=== PATIENT | female | born 1970 | race Caucasian/White ===

== ENCOUNTER 2016-04-25 19:34 | Emergency (ER) | payer MEDICAID ==
[2016-04-25 20:59] LABS: BASOPHILS 0.3 % (0.0-2.0); EOSINOPHILS 2.2 % (0-7); HEMATOCRIT 41.4 % (36.0-48.0); HEMOGLOBIN 13.8 g/dL (12-16); IMMATURE GRANULOCYTES 0.3 % (0-5); LYMPHOCYTES 21.7 % (15-50); MCH 30.5 pg (26.0-34.0); MCHC 33.3 g/dL (31.0-37.0); MCV 91.6 fL (80.0-100.0); MEAN PLATELET VOLUME 10.6 fL (7.4-10.4); MONOCYTES 7.3 % (2-11); NEUTROPHILS 68.2 % (40-80); PLATELET COUNT 308 10x3/uL (130-400); RBC 4.52 10x6/uL (4.00-5.40); RDW 13.4 % (11.5-14.5); WBC 12.9 10x3/uL (4.8-10.8)
[2016-04-25 21:14] LABS: HCG SERUM NEGATIVE (NEGATIVE)
[2016-04-25 21:18] LABS: ALBUMIN 3.6 g/dL (3.4-5.0); ALKALINE PHOSPHATASE 95 U/L (46-116); ALT (SGPT) 34 U/L (10-68); CALC OSMOLALITY 273 mosm/kg (275-300); CARBON DIOXIDE 20.2 mmol/L (21.0-32.0); CHLORIDE - SERUM 104 mmol/L (98-107); CREATININE - SERUM 0.8 mg/dL (0.6-1.3); GLUCOSE 89 mg/dL (74-106); POTASSIUM - SERUM 3.6 mmol/L (3.5-5.1); PROTEIN - SERUM 7.9 g/dL (6.4-8.2); SODIUM 138 mmol/L (136-145); UREA NITROGEN 9 mg/dL (7-18); eGFR NON AFRICAN AMERICAN 82 mL/min (90-120)
[2016-04-25 21:29] LABS: CKMB 3.3 U/L (0.0-3.6); CREATINE KINASE 234 UL (21-215); TROPONIN-I < 0.017 ng/mL (0.000-0.060)
== END 2016-04-25 22:35 | disposition home or self-care (01) ==
LOC: D.ER 19:34
PROVIDERS: Emergency Medicine Emergency Medical Services
DX: I10 Essential (primary) hypertension (principal); E11.9 Type 2 diabetes mellitus without complications

== ENCOUNTER 2016-05-30 17:48 | Emergency (ER) | payer MEDICAID | END 2016-05-30 19:10 | disposition left against medical advice (07) | LOC: D.ER 17:48 | DX: R51 Headache (principal) ==

== ENCOUNTER 2016-07-05 14:30 | Emergency (ER) | payer MEDICAID ==
[2016-07-05 15:03] LABS: APPEARANCE CLEAR (CLEAR); COLOR YELLOW (YELLOW)
[2016-07-05 15:04] LABS: BILIRUBIN NEGATIVE (NEGATIVE); GLUCOSE 100 mg/dL (NEGATIVE); KETONE NEGATIVE (NEGATIVE); LEUKOCYTE ESTERASE NEGATIVE (NEGATIVE); NITRITE NEGATIVE (NEGATIVE); PROTEIN NEGATIVE (NEGATIVE); SPECIFIC GRAVITY 1.025 (1.005-1.020); UROBILINOGEN NORMAL (NORMAL)
== END 2016-07-05 17:01 | disposition left against medical advice (07) ==
LOC: D.ER 14:30
PROVIDERS: Emergency Medicine
DX: M54.5 Low back pain (principal)

== ENCOUNTER → 2016-08-01 05:29 | Outpatient (CLI) | payer MEDICAID | END | disposition home or self-care (01) | LOC: D.RAD 07-29 13:15 | DX: N20.0 Calculus of kidney (principal) ==

== ENCOUNTER 2016-10-19 16:03 | Emergency (ER) | payer OTHER ==
[2016-10-19 17:25] LABS: BASOPHILS 0.3 % (0-2); EOSINOPHILS 3.1 % (0-7); HEMATOCRIT 38.3 % (36.0-48.0); HEMOGLOBIN 12.6 g/dL (12-16); IMMATURE GRANULOCYTES 0.8 % (0-5); LYMPHOCYTES 33.9 % (15-50); MCH 30.6 pg (26.0-34.0); MCHC 32.9 g/dL (31.0-37.0); MEAN PLATELET VOLUME 11.1 fL (7.4-10.4); MONOCYTES 8.7 % (2-11); NEUTROPHILS 53.2 % (40-80); RBC 4.12 10x6/uL (4.00-5.40); RDW 13.4 % (11.5-14.5); WBC 8.7 10x3/uL (4.8-10.8)
[2016-10-19 17:26] LABS: PLATELET COUNT 95 10x3/uL (130-400)
[2016-10-19 17:53] LABS: PLATELET ESTIMATE DECREASED
[2016-10-19 18:05] LABS: ALBUMIN 3.5 g/dL (3.4-5.0); ALKALINE PHOSPHATASE 110 U/L (46-116); ALT (SGPT) 32 U/L (10-68); BILIRUBIN - TOTAL 0.17 mg/dL (0.2-1.3); CALC OSMOLALITY 285 mosm/kg (275-300); CALCIUM 8.3 mg/dL (8.5-10.1); CARBON DIOXIDE 23.3 mmol/L (21.0-32.0); CHLORIDE - SERUM 108 mmol/L (98-107); CREATININE - SERUM 0.7 mg/dL (0.6-1.3); GLUCOSE 92 mg/dL (74-106); POTASSIUM - SERUM 3.9 mmol/L (3.5-5.1); PROTEIN - SERUM 7.2 g/dL (6.4-8.2); SODIUM 143 mmol/L (136-145); UREA NITROGEN 15 mg/dL (7-18); eGFR NON AFRICAN AMERICAN > 90 mL/min (90-120)
[2016-10-19 18:15] LABS: CKMB 4.3 U/L (0.0-3.6); CREATINE KINASE 305 UL (21-215)
[2016-10-19 18:17] LABS: TROPONIN-I < 0.017 ng/mL (0.000-0.060)
[2016-10-19 20:05] LABS: CREATINE KINASE 303 UL (21-215); TROPONIN-I < 0.017 ng/mL (0.000-0.060)
[2016-10-19 21:21] LABS: CKMB 3.5 U/L (0.0-3.6)
== END 2016-10-19 21:54 | disposition home or self-care (01) ==
LOC: D.ER 16:03
PROVIDERS: Emergency Medicine; Nurse Practitioner Family
DX: R07.89 Other chest pain (principal); E11.9 Type 2 diabetes mellitus without complications; I10 Essential (primary) hypertension; E66.9 Obesity, unspecified

== ENCOUNTER → 2017-02-27 13:49 | Outpatient (CLI) | payer OTHER ==
[~2017-02-27 13:49] MED LIST: COREG12.5 MG PO; GLUCOPHAGE1000 MG PO; NIFEDIPINE ER60 MG PO; TAMIFLU75 MG PO; ZESTRIL40 MG PO
[2017-04-20 11:59] VITALS: BMI 41.6
== END | disposition home or self-care (01) ==
LOC: D.MAMMO 02-17 16:00
DX: Z12.31 Encounter for screening mammogram for malignant neoplasm of breast (principal)

== ENCOUNTER 2017-04-19 14:11 | Observation (INO) | payer OTHER ==
[~2017-04-19] VITALS: Ht 165.1 cm; Wt 113.6 kg
[2017-04-19 15:05] LABS: UDS - AMPHET NEGATIVE QUAL (NEGATIVE); UDS - BARB POSITIVE QUAL (NEGATIVE); UDS - BENZO POSITIVE QUAL (NEGATIVE); UDS - COCAINE NEGATIVE QUAL (NEGATIVE); UDS - OPIATE NEGATIVE QUAL (NEGATIVE); UDS - PCP NEGATIVE QUAL (NEGATIVE); UDS - THC NEGATIVE QUAL (NEGATIVE)
[2017-04-19 15:06] LABS: APPEARANCE CLEAR (CLEAR); COLOR YELLOW (YELLOW)
[2017-04-19 15:07] LABS: BILIRUBIN NEGATIVE (NEGATIVE); GLUCOSE NEGATIVE (NEGATIVE); KETONE NEGATIVE (NEGATIVE); NITRITE NEGATIVE (NEGATIVE); PROTEIN NEGATIVE (NEGATIVE); UROBILINOGEN NORMAL (NORMAL)
[2017-04-19 15:18] LABS: BASOPHILS 0.2 % (0-2); EOSINOPHILS 0.8 % (0-7); HEMATOCRIT 39.3 % (36.0-48.0); HEMOGLOBIN 13.3 g/dL (12-16); IMMATURE GRANULOCYTES 0.4 % (0-5); LYMPHOCYTES 17.2 % (15-50); MCH 31.4 pg (26.0-34.0); MCHC 33.8 g/dL (31.0-37.0); MCV 92.7 fL (80.0-100.0); MEAN PLATELET VOLUME 10.8 fL (7.4-10.4); MONOCYTES 7.1 % (2-11); NEUTROPHILS 74.3 % (40-80); RBC 4.24 10x6/uL (4.00-5.40); RDW 13.7 % (11.5-14.5); WBC 8.3 10x3/uL (4.8-10.8)
[2017-04-19 15:27] LABS: PLATELET COUNT 298 10x3/uL (130-400)
[2017-04-19 15:36] LABS: INR 1.12 (0.85-1.17)
[2017-04-19 15:38] LABS: D-DIMER-QUANTITATIVE 0.43 ug/mLFEU (0.20-0.54)
[2017-04-19 15:50] LABS: ALBUMIN 3.3 g/dL (3.4-5.0); ALKALINE PHOSPHATASE 103 U/L (46-116); ALT (SGPT) 28 U/L (10-68); BILIRUBIN - TOTAL 0.38 mg/dL (0.2-1.3); CALC OSMOLALITY 283 mosm/kg (275-300); CALCIUM 8.5 mg/dL (8.5-10.1); CHLORIDE - SERUM 106 mmol/L (98-107); CREATININE - SERUM 1.5 mg/dL (0.6-1.3); POTASSIUM - SERUM 4.3 mmol/L (3.5-5.1); PROTEIN - SERUM 7.5 g/dL (6.4-8.2); SODIUM 139 mmol/L (136-145); UREA NITROGEN 14 mg/dL (7-18); eGFR NON AFRICAN AMERICAN 40 mL/min (90-120)
[2017-04-19 15:55] LABS: GLUCOSE 196 mg/dL (74-106)
[2017-04-19 16:04] LABS: CKMB 1.4 U/L (0.0-3.6); CREATINE KINASE 236 UL (21-215); MAGNESIUM - SERUM 2.5 mg/dL (1.8-2.4); PHOSPHOROUS 3.9 mg/dL (2.5-4.9)
[2017-04-19 16:05] LABS: TROPONIN-I < 0.017 ng/mL (0.000-0.060)
[2017-04-19 19:45] VITALS: BP 121/82
[2017-04-19 20:00] VITALS: BP 106/55
[2017-04-19 20:11] VITALS: BP 122/81; BMI 41.6
[2017-04-19 21:00] VITALS: BP 121/72
[2017-04-19 22:00] VITALS: BP 136/92
[2017-04-19 23:00] VITALS: BP 149/97
[2017-04-20] VITALS (11 sets, daily range): BP systolic 123–187; BP diastolic 72–119; Ht 165.1 cm; Wt 113.6 kg
[2017-04-20 03:47] LABS: BASOPHILS 0.3 % (0-2); HEMATOCRIT 37.4 % (36.0-48.0); HEMOGLOBIN 12.3 g/dL (12-16); IMMATURE GRANULOCYTES 0.3 % (0-5); LYMPHOCYTES 23.4 % (15-50); MCH 30.8 pg (26.0-34.0); MCHC 32.9 g/dL (31.0-37.0); MCV 93.7 fL (80.0-100.0); MEAN PLATELET VOLUME 10.8 fL (7.4-10.4); MONOCYTES 11.8 % (2-11); NEUTROPHILS 62.2 % (40-80); RBC 3.99 10x6/uL (4.00-5.40); RDW 13.7 % (11.5-14.5); WBC 7.1 10x3/uL (4.8-10.8)
[2017-04-20 03:52] LABS: PLATELET COUNT 233 10x3/uL (130-400)
[2017-04-20 04:16] LABS: ALBUMIN 3.2 g/dL (3.4-5.0); ANION GAP 16.3 mmol/L (8-16); BILIRUBIN - TOTAL 0.4 mg/dL (0.2-1.3); CALCIUM 8.2 mg/dL (8.5-10.1); CARBON DIOXIDE 22.4 mmol/L (21.0-32.0); POTASSIUM - SERUM 3.7 mmol/L (3.5-5.1); PROTEIN - SERUM 7.4 g/dL (6.4-8.2)
[2017-04-20 04:17] LABS: CREATININE - SERUM 1.1 mg/dL (0.6-1.3)
[2017-04-20] MEDS ORDERED: TAMIFLU75 MG PO (11:48)
[2017-04-20] MEDS ORDERED: NIFEDIPINE ER60 MG PO (12:06)
[2017-04-20] MEDS ORDERED: ZESTRIL40 MG PO (12:06)
[2017-04-20] MEDS ORDERED: COREG12.5 MG PO (12:06)
[2017-04-20] MEDS ORDERED: GLUCOPHAGE1000 MG PO (12:06)
== END 2017-04-20 14:52 | disposition home or self-care (01) ==
LOC: D.ER 14:11 → D.ICU 16:54 → OBSVTIME 16:54 → D.ICU 04-20 14:52
PROVIDERS: Family Medicine
DX: T42.6X1A Poisoning by other antiepileptic and sedative-hypnotic drugs, accidental (unintentional), initial encounter (principal); G93.40 Encephalopathy, unspecified; Y92.9 Unspecified place or not applicable; R09.02 Hypoxemia; N17.9 Acute kidney failure, unspecified; I10 Essential (primary) hypertension; J11.1 Influenza due to unidentified influenza virus with other respiratory manifestations; E11.9 Type 2 diabetes mellitus without complications

== ENCOUNTER → 2017-09-14 19:52 | Outpatient (CLI) | payer OTHER ==
[2017-04-20 11:59] VITALS: BMI 41.6
== END | disposition home or self-care (01) ==
LOC: D.MAMMO 15:00
DX: N63.20 Unspecified lump in the left breast, unspecified quadrant (principal)

== ENCOUNTER 2018-01-07 13:35 | Emergency (ER) | payer OTHER ==
[~2018-01-07] VITALS: Ht 165.1 cm; Wt 102.7 kg
[2018-01-07 13:59] VITALS: Ht 165.1 cm; Wt 102.7 kg
[2018-01-07] MEDS ORDERED: BUTALB-APAP-CA1 EACH PO (14:00)
[2018-01-07] MEDS ORDERED: AMBIEN10 MG PO (14:00)
[2018-01-07] MEDS ORDERED: COMPAZINE5 MG PO (16:13)
[2018-01-07] MEDS ORDERED: STADOL NASAL S2.5 ML NASAL (16:13)
[2018-01-07 16:48] VITALS: BP 143/87
== END 2018-01-07 16:47 | disposition home or self-care (01) ==
LOC: D.ER 13:35
DX: G43.009 Migraine without aura, not intractable, without status migrainosus (principal); E11.9 Type 2 diabetes mellitus without complications; I10 Essential (primary) hypertension